=== PATIENT | female | born 1985 | race Caucasian/White ===

== ENCOUNTER 2020-12-28 23:25 | Emergency (ER) | payer SELFPAY ==
[2020-12-29] MEDS ORDERED: HYDROCODONE/APAP 10/325 TAB ONE (00:44)
--- NOTE | 2020-12-29 01:34 | ER ---
Nurse's Notes [facility] Name: Luz Augustin Age: 35 yrs Sex: Female : 1985 Arrival Date: 12/28/2020 Time: 23:28 Bed 7 Private MD: Diagnosis: Nondisplaced fracture of fifth metatarsal bone, left foot-Avulsion Presentation: 12/29 00:13 Chief complaint: Patient states: fell down 5-6 steps, coming down the stairs, felt a iw pop in her left ankle ankle/foot and left knee, now has pain and swelling to left foot, denies hitting head or any other injuries. Coronavirus screen: At this time, the client does not indicate any symptoms associated with coronavirus-19. Ebola Screen: Patient negative for fever greater than or equal to 101.5 degrees Fahrenheit, and additional compatible Ebola Virus Disease symptoms Patient denies exposure to infectious person. Patient denies travel to an Ebola-affected area in the 21 days before illness onset. No symptoms or risks identified at this time. Initial Sepsis Screen: Does the patient meet any 2 criteria? No. Patient's initial sepsis screen is negative. Does the patient have a suspected source of infection? No. Patient's initial sepsis screen is negative. Risk Assessment: Do you want to hurt yourself or someone else? Patient reports no desire to harm self or others. Onset of symptoms was December 29, 2020. 00:13 Method Of Arrival: Wheelchair iw 00:13 Acuity: NOEMI 4 iw Triage Assessment: 01:51 General: Appears uncomfortable, Behavior is calm, cooperative. Pain: Complains of pain rv in left foot. Historical: - Allergies: 00:15 No Known Allergies; iw - Home Meds: 00:15 None [Active]; iw - PMHx: 00:15 None; iw - PSHx: 00:15 Cholecystectomy; iw - Immunization history:: Adult Immunizations up to date. - Social history:: Smoking status: Patient denies any tobacco usage or history of. - Family history:: not pertinent. - Hospitalizations: : No recent hospitalization is reported. Screenin:19 Abuse screen: Denies threats or abuse. Nutritional screening: No deficits noted. ea Tuberculosis screening: No symptoms or risk factors identified. Fall Risk Fall in past 12 months (25 points). Vital Signs: 00:13 BP 138 / 94; Pulse 89; Resp 16; Pulse Ox 97% on R/A; iw 01:51 BP 131 / 86; Pulse 81; Resp 16; Pulse Ox 98% on R/A; rv ED Course: 12/28 23:28 Patient arrived in ED. am4 12/29 00:04 Anil Maciel MD is Attending Physician. rn 00:14 Triage completed. iw 00:15 Arm band placed on. iw 00:19 Nataliya Martinez RN is Primary Nurse. ea 00:19 Patient has correct armband on for positive identification. Bed in low position. Call ea light in reach. Side rails up X2. 00:59 Foot Left 3 View In Process Unspecified. EDMS 01:03 Ankle Left 3 View In Process Unspecified. EDMS 01:51 No provider procedures requiring assistance completed. Patient did not have IV access rv during this emergency room visit. Administered Medications: 00:28 Drug: Beatrice (HYDROcodone-acetaminophen) 10 mg-325 mg 1 tabs Route: PO; ea 01:34 Follow up: Response: No adverse reaction; RASS: Alert and Calm (0) ea Outcome: 01:33 Discharge ordered by . rn 01:51 Discharged to home via wheelchair. rv 01:51 Condition: good 01:51 Discharge instructions given to patient, Instructed on discharge instructions, follow up and referral plans. Demonstrated understanding of instructions, follow-up care. 01:52 Patient left the ED. rv Signatures: Dispatcher [employer] Shaylee Way RN RN iw Nieto, Roman, MD MD rn Antunez, Elena, RN Kevin Cobb ea, RN RN rv Martinez, Ashley am4
--- NOTE | 2020-12-29 01:34 | EDPHYS ---
Physician Documentation [facility] Name: Luz Augustin Age: 35 yrs Sex: Female : 1985 Arrival Date: 12/28/2020 Time: 23:28 Bed 7 Private MD: ED Physician Anil Maciel HPI: 12/29 00:48 This 35 yrs old Female presents to ER via Wheelchair with complaints of foot injury. rn 00:49 The patient presents with an injury, pain. The complaints affect the left foot. rn 00:49 Onset: The symptoms/episode began/occurred just prior to arrival. Modifying factors: rn The symptoms are alleviated by elevation of extremity, the symptoms are aggravated by weight bearing, movement. Associated signs and symptoms: Pertinent positives: swelling, Pertinent negatives: fever, weakness. Severity of symptoms: At their worst the symptoms were moderate, in the emergency department the symptoms are unchanged. The patient has not experienced similar symptoms in the past. The patient has not recently seen a physician. Reports missed a step, fell, landed on left foot and ankle, reports pain and swelling to left lateral foot and 5th toe. No other injuries to head/back/neck/chest. . Historical: - Allergies: 00:15 No Known Allergies; iw - Home Meds: 00:15 None [Active]; iw - PMHx: 00:15 None; iw - PSHx: 00:15 Cholecystectomy; iw - Immunization history:: Adult Immunizations up to date. - Social history:: Smoking status: Patient denies any tobacco usage or history of. - Family history:: not pertinent. - Hospitalizations: : No recent hospitalization is reported. ROS: 00:49 Constitutional: Negative for fever, chills, and weight loss, MS/Extremity: + injury and rn pain to left foot Skin: Negative for injury, rash, and discoloration, Neuro: Negative for weakness, numbness, tingling Exam: 00:51 Constitutional: This is a well developed, well nourished patient who is awake, alert, rn and in no acute distress. MS/ Extremity: Pulses equal, no cyanosis. Neurovascular intact. + mild swelling and tenderness left lateral foot and 5th toe. No open wounds. Vital Signs: 00:13 BP 138 / 94; Pulse 89; Resp 16; Pulse Ox 97% on R/A; iw 01:51 BP 131 / 86; Pulse 81; Resp 16; Pulse Ox 98% on R/A; rv MDM: 00:04 Patient medically screened. rn 01:31 Differential diagnosis: fracture, sprain. Data reviewed: vital signs, nurses notes, rn radiologic studies, plain films, and as a result, I will discharge patient. Counseling: I had a detailed discussion with the patient and/or guardian regarding: the historical points, exam findings, and any diagnostic results supporting the discharge/admit diagnosis, radiology results, the need for outpatient follow up, to return to the emergency department if symptoms worsen or persist or if there are any questions or concerns that arise at home. Response to treatment: the patient's symptoms have mildly improved after treatment, and as a result, I will discharge patient. ED course: small avulsion fracture left 5th metatarsal. Will dc home in hard sole shoe and RICE.. 12/29 00:31 Order name: Foot Left 3 View [facility] 12/29 00:31 Order name: Ankle Left 3 View [facility] 12/29 01:34 Order name: Splint: post-op shoe; Complete Time: 01:50 rn Administered Medications: 00:28 Drug: Luquillo (HYDROcodone-acetaminophen) 10 mg-325 mg 1 tabs Route: PO; ea 01:34 Follow up: Response: No adverse reaction; RASS: Alert and Calm (0) ea Disposition: 12/29/20 01:33 Discharged to Home. Impression: Nondisplaced fracture of fifth metatarsal bone, left foot - Avulsion. - Condition is Stable. - Discharge Instructions: Avulsion Fracture of the Foot. - Medication Reconciliation Form, Thank You Letter, Antibiotic Education, Prescription Opioid Use form. - Follow up: Private Physician; When: As needed; Reason: Recheck today's complaints, Re-evaluation by your physician. - Problem is new. - Symptoms have improved. Signatures: Dispatcher [employer] [facility] Shaylee Peña RN RN iw Nieto, Roman, MD MD rn Antunez, Elena, RN RN ea Vicente, Ronaldo, RN RN rv Corrections: (The following items were deleted from the chart) 01:52 01:33 12/29/2020 01:33 Discharged to Home. Impression: Nondisplaced fracture of fifth rv metatarsal bone, left foot - Avulsion. Condition is Stable. Forms are Medication Reconciliation Form, Thank You Letter, Antibiotic Education, Prescription Opioid Use. Follow up: Private Physician; When: As needed; Reason: Recheck today's complaints, Re-evaluation by your physician. Problem is new. Symptoms have improved. rn
[2020-12-29 01:58] VITALS: BP 131/86; O2SAT 98
--- NOTE | 2020-12-29 10:58 | RAD REPORT ---
EXAM DESCRIPTION: RAD - Ankle Left 3 View -12/29/2020 1:03 am CLINICAL HISTORY: 35 years, Female, PAIN COMPARISON: None FINDINGS: 3 X-ray views of the left foot and left ankle (frontal lateral and oblique) were performed . There is small chip avulsion fracture along the base fifth metatarsal with no evidence for significan t displacement. There is no significant articular or soft tissue abnormalities. No gross intraosseo us lesions. No periosteal reaction is seen. The ankle mortise is intact. There is no significant yaneli int effusion. No periosteal reaction. No gross soft tissue abnormality is demonstrated. IMPRESSION: Small chip avulsion fracture base fifth metatarsal. Otherwise unremarkable left ankle an d left foot. Electronically signed by: Henri Spencer MD 12/29/2020 1:16 AM CDT Due to temporary technical issues with the PACS/Fluency reporting system, reports are being signed by the in house radiologist without review as a courtesy to ensure prompt reporting. The interpreting r adiologist is fully responsible for the content of the report.
--- NOTE | 2020-12-29 11:03 | RAD REPORT ---
EXAM DESCRIPTION: RAD - Foot Left 3 View - 12/29/2020 12:59 am CLINICAL HISTORY: 35 years, Female, PAIN COMPARISON: None . FINDINGS: 3 X-ray views of the left foot and left ankle (frontal lateral and oblique) were performed . There is small chip avulsion fracture along the base fifth metatarsal with no evidence for significan t displacement. There is no significant articular or soft tissue abnormalities. No gross intraosseo us lesions. No periosteal reaction is seen. The ankle mortise is intact. There is no significant yaneli int effusion. No periosteal reaction. No gross soft tissue abnormality is demonstrated. IMPRESSION: Small chip avulsion fracture base fifth metatarsal. Otherwise unremarkable left ankle an d left foot. Electronically signed by: Henri Spencer MD 12/29/2020 1:16 AM CDT Due to temporary technical issues with the PACS/Fluency reporting system, reports are being signed by the in house radiologist without review as a courtesy to ensure prompt reporting. The interpreting r adiologist is fully responsible for the content of the report.
== END 2020-12-29 01:52 | disposition home or self-care (01) ==
LOC: ER 23:25
DX: S92.355A Nondisplaced fracture of fifth metatarsal bone, left foot, initial encounter for closed fracture (principal); W19.XXXA Unspecified fall, initial encounter
CPT/HCPCS: 99283

== ENCOUNTER 2021-05-09 10:21 | Emergency (ER) | payer SELFPAY ==
--- NOTE | 2021-05-09 11:45 | ER ---
Nurse's Notes [facility] Name: Luz Augustin Age: 36 yrs Sex: Female : 1985 Arrival Date: 05/09/2021 Time: 10:31 Bed DX1 Private MD: Diagnosis: Streptococcal tonsillitis Presentation: 05/09 10:36 Chief complaint: Patient states: Sunday awoke with sore throat, spitting up blood. ll1 States she gets strep throat yearly. No N/V/D, no fever. Coronavirus screen: Vaccine status: Patient reports being unvaccinated. Client denies travel out of the [place] in the last 14 days. sore throat, Client presents with at least one sign or symptom that may indicate coronavirus-19. Standard/surgical mask placed on the client. Ebola Screen: Patient denies travel to an Ebola-affected area in the 21 days before illness onset. Initial Sepsis Screen: Does the patient meet any 2 criteria? No. Patient's initial sepsis screen is negative. Does the patient have a suspected source of infection? Yes: Other: sore throat. Risk Assessment: Do you want to hurt yourself or someone else? Patient reports no desire to harm self or others. Onset of symptoms was May 08, 2021. 10:36 Method Of Arrival: Ambulatory ll1 10:36 Acuity: NOEMI 4 ll1 Historical: - Allergies: 10:38 No Known Allergies; ll1 - PMHx: 10:38 None; ll1 - PSHx: 10:38 hysterectomy; Cholecystectomy; ll1 - Immunization history:: Client reports having NOT received the Covid vaccine. Flu vaccine status is unknown. - Social history:: Smoking status: Patient denies any tobacco usage or history of. Screenin:53 Abuse screen: Denies threats or abuse. Denies injuries from another. Nutritional ss screening: No deficits noted. Tuberculosis screening: Never had TB. Fall Risk None identified. Assessment: 11:53 General: Appears in no apparent distress. comfortable, Behavior is calm, cooperative, ss Reports feeling ill for 1-2 days. Pain: Complains of pain in throat Pain currently is 10 out of 10 on a pain scale. Quality of pain is described as sore. Neuro: Level of Consciousness is awake, alert, obeys commands, Oriented to person, place, time, situation, Patient Coordinator are equal bilaterally. Cardiovascular: Capillary refill < 3 seconds is brisk in bilateral fingers. Respiratory: Airway is patent Respiratory effort is even, unlabored, Respiratory pattern is regular, symmetrical, Breath sounds are clear bilaterally. GI: No signs and/or symptoms were reported involving the gastrointestinal system. EENT: Oral mucosa is moist. Throat is clear. Derm: Skin is intact, is healthy with good turgor, Skin is dry, Skin is pink, warm \T\ dry. normal. Vital Signs: 10:36 Resp 18; Weight 92.99 kg; Height 5 ft. 2 in. (157.48 cm); Pain 10/10; ll1 10:39 BP 114 / 80; Pulse 75; Temp 97.6; Pulse Ox 100% ; ll1 10:36 Body Mass Index 37.49 (92.99 kg, 157.48 cm) ll1 ED Course: 10:31 Patient arrived in ED. as 10:36 Arm band placed on. ll1 10:38 Triage completed. ll1 10:47 Farhana Pena FNP-C is [facility]. kb 10:47 Sherman Tucker MD is Attending Physician. kb 11:53 Miroslava Ortega, PERI is Primary Nurse. ss 11:53 Patient has correct armband on for positive identification. Bed in low position. Call ss light in reach. 11:53 No provider procedures requiring assistance completed. Patient did not have IV access ss during this emergency room visit. Administered Medications: 11:53 Drug: Bicillin L-A (penicillin G Benzathine) 1.2 million units Route: IM; Site: right ss gluteus; 12:06 Follow up: Response: No adverse reaction; Medication administered at discharge. ss Outcome: 11:44 Discharge ordered by . kb 12:05 Discharged to home ambulatory. ss 12:05 Condition: good 12:05 Discharge instructions given to patient, Instructed on discharge instructions, follow up and referral plans. Demonstrated understanding of instructions, follow-up care. 12:06 Patient left the ED. ss Signatures: Farhana Pena FNP-C FNP-Colleen Guzman Shelby, RN RN Peirre Morales RN RN 1
--- NOTE | 2021-05-09 11:45 | EDPHYS ---
Physician Documentation [facility] Name: Luz Augustin Age: 36 yrs Sex: Female : 1985 Arrival Date: 05/09/2021 Time: 10:31 Bed DX1 Private MD: LANETTE Physician Sherman Tucker HPI: 05/09 11:45 This 36 yrs old Female presents to ER via Ambulatory with complaints of Sore kb Throat. 11:45 The patient presents with sore throat. The patient describes throat pain as constant. kb Onset: The symptoms/episode began/occurred yesterday. Severity of symptoms: At their worst the symptoms were moderate, in the emergency department the symptoms are unchanged. Modifying factors: The symptoms are alleviated by nothing, the symptoms are aggravated by swallowing, Patient's oral intake status: good Denies contact with similarly ill indivduals. Associated signs and symptoms: Pertinent positives: Sore throat Pertinent negatives fever. The patient has not experienced similar symptoms in the past. The patient has not recently seen a physician. Pt reports sore throat since yesterday morning. Denies any other symptoms. Historical: - Allergies: 10:38 No Known Allergies; ll1 - PMHx: 10:38 None; ll1 - PSHx: 10:38 hysterectomy; Cholecystectomy; ll1 - Immunization history:: Client reports having NOT received the Covid vaccine. Flu vaccine status is unknown. - Social history:: Smoking status: Patient denies any tobacco usage or history of. ROS: 11:45 Constitutional: Negative for fever, chills, and weight loss. kb 11:45 ENT: Positive for sore throat. 11:45 All other systems are negative. Exam: 11:45 Constitutional: This is a well developed, well nourished patient who is awake, alert, kb and in no acute distress. Head/Face: Normocephalic, atraumatic. Respiratory: Respirations even and unlabored. No increased work of breathing, no retractions or nasal flaring. Skin: Warm, dry with normal turgor. Normal color. MS/ Extremity: Pulses equal, no cyanosis. Neurovascular intact. Full, normal range of motion. Neuro: Awake and alert, GCS 15, oriented to person, place, time, and situation. Moves all extremities. Normal gait. Psych: Awake, alert, with orientation to person, place and time. Behavior, mood, and affect are within normal limits. 11:45 ENT: Posterior pharynx: Airway: normal, Tonsils: bilaterally enlarged, with erythema, Uvula: normal, midline, swelling, that is mild, erythema, that is moderate, exudate, is not appreciated. Vital Signs: 10:36 Resp 18; Weight 92.99 kg; Height 5 ft. 2 in. (157.48 cm); Pain 10/10; ll1 10:39 BP 114 / 80; Pulse 75; Temp 97.6; Pulse Ox 100% ; ll1 10:36 Body Mass Index 37.49 (92.99 kg, 157.48 cm) ll1 MDM: 11:43 Patient medically screened. kb 11:46 Data reviewed: vital signs, nurses notes. Data interpreted: Pulse oximetry: on room air kb is 100 %. Interpretation: normal. Counseling: I had a detailed discussion with the patient and/or guardian regarding: the historical points, exam findings, and any diagnostic results supporting the discharge/admit diagnosis, lab results, the need for outpatient follow up, a family practitioner, to return to the emergency department if symptoms worsen or persist or if there are any questions or concerns that arise at home. 05/09 10:41 Order name: Strep; Complete Time: 11:11 ll1 Administered Medications: 11:53 Drug: Bicillin L-A (penicillin G Benzathine) 1.2 million units Route: IM; Site: right ss gluteus; 12:06 Follow up: Response: No adverse reaction; Medication administered at discharge. ss Disposition: 15:13 Co-signature as Attending Physician, Sherman Tucker MD I agree with the assessment and rehana plan of care. Disposition Summary: 05/09/21 11:44 Discharge Ordered Location: Home kb Condition: Stable kb Diagnosis - Streptococcal tonsillitis kb Followup: kb - With: Emergency Department - When: As needed - Reason: Worsening of condition Followup: kb - With: Private Physician - When: 2 - 3 days - Reason: Recheck today's complaints, Continuance of care, Re-evaluation by your physician Discharge Instructions: - Discharge Summary Sheet kb - Strep Throat, Adult, [id number] kb Forms: - Medication Reconciliation Form kb - Thank You Letter kb - Antibiotic Education kb - Prescription Opioid Use kb Signatures: Dispatcher [employer] Farhana Rosario, KEY WORKER-C KEY WORKER-Edb Sherman Tucker MD MD cha Smirch, Shelby, RN RN ss Pierre Morales RN RN ll1
[2021-05-09 12:12] VITALS: BP 114/80; TEMP 97.6; O2SAT 100
[2021-05-09] MEDS ORDERED: PEN G BENZ LA 1.2MU/2ML SYRINGE IM ONE (12:12)
== END 2021-05-09 12:06 | disposition home or self-care (01) ==
LOC: ER 10:21
DX: J03.00 Acute streptococcal tonsillitis, unspecified (principal)
CPT/HCPCS: 87081; 96372; 99283; J0561

== ENCOUNTER 2021-11-23 19:23 | Emergency (ER) | payer SELFPAY ==
--- NOTE | 2021-11-23 20:14 | ER ---
Nurse's Notes [facility] Name: Luz Augustin Age: 36 yrs Sex: Female : 1985 Arrival Date: 11/23/2021 Time: 19:26 Bed 9 Private MD: Diagnosis: Hordeolum externum left upper eyelid Presentation: 11/23 19:32 Chief complaint: Patient states: "I thought I had a stye so I've been doing warm ab2 compresses and i went and got drops but they made my face swell up. This has been going on for 2 weeks.". Coronavirus screen: Vaccine status: Patient reports being unvaccinated. Client denies travel out of the [place] in the last 14 days. At this time, the client does not indicate any symptoms associated with coronavirus-19. Ebola Screen: Patient negative for fever greater than or equal to 101.5 degrees Fahrenheit, and additional compatible Ebola Virus Disease symptoms Patient denies exposure to infectious person. Patient denies travel to an Ebola-affected area in the 21 days before illness onset. No symptoms or risks identified at this time. Initial Sepsis Screen: Does the patient meet any 2 criteria? No. Patient's initial sepsis screen is negative. Does the patient have a suspected source of infection? No. Patient's initial sepsis screen is negative. Risk Assessment: Do you want to hurt yourself or someone else? Patient reports no desire to harm self or others. Onset of symptoms is unknown. 19:32 Method Of Arrival: Ambulatory ab2 19:32 Acuity: NOEMI 4 ab2 Triage Assessment: 19:34 General: Appears in no apparent distress. uncomfortable, Behavior is calm, cooperative, ab2 appropriate for age. Pain: Complains of pain in right eye Pain currently is 8 out of 10 on a pain scale. Historical: - Allergies: 19:34 No Known Allergies; ab2 - PMHx: 19:34 None; ab2 - PSHx: 19:34 Cholecystectomy; hysterectomy; ab2 - Immunization history:: Adult Immunizations up to date. - Social history:: Smoking status: Patient denies any tobacco usage or history of. Screenin:29 Abuse screen: Denies threats or abuse. Nutritional screening: No deficits noted. ss7 Tuberculosis screening: No symptoms or risk factors identified. Fall Risk None identified. Assessment: 20:29 General: Appears in no apparent distress. Behavior is calm, cooperative, appropriate ss7 for age. Pain: Pain radiates to left upper eyelid. Neuro: No deficits noted. Cardiovascular: No deficits noted. Respiratory: No deficits noted. GI: No deficits noted. : No deficits noted. EENT: Lid(s) w/ stye noted left upper eyelid. Vital Signs: 19:32 BP 146 / 92; Pulse 77; Resp 17; Temp 98.2(TE); Pulse Ox 100% ; Weight 92.99 kg; Height ab2 5 ft. 2 in. (157.48 cm); Pain 8/10; 19:32 Body Mass Index 37.49 (92.99 kg, 157.48 cm) ab2 ED Course: 19:26 Patient arrived in ED. es 19:34 Triage completed. ab2 19:34 Arm band placed on right wrist. ab2 19:36 Theo Montalvo PA is PHCP. jr8 19:36 Sherman Tucker MD is Attending Physician. jr8 20:13 Carol Rois MD is Referral Physician. jr8 20:29 Dahlia Tejeda, PERI is Primary Nurse. ss7 20:29 Patient has correct armband on for positive identification. ss7 20:29 No provider procedures requiring assistance completed. Patient did not have IV access ss7 during this emergency room visit. Administered Medications: No medications were administered Outcome: 20:13 Discharge ordered by . jr8 20:29 Discharged to home ambulatory. ss7 20:29 Condition: good 20:29 Discharge instructions given to patient, Instructed on discharge instructions, follow up and referral plans. Demonstrated understanding of instructions, follow-up care, medications, Prescriptions given X 1. 20:30 Patient left the ED. ss7 Signatures: Jen Calvert Theo Montalvo PA PA jr8 Lex Ibarra ab2 Dahlia Tejeda, RN RN ss7
--- NOTE | 2021-11-23 20:14 | EDPHYS ---
Physician Documentation [facility] Name: Luz Augustin Age: 36 yrs Sex: Female : 1985 Arrival Date: 11/23/2021 Time: 19:26 Bed 9 Private MD: ED Physician Sherman Tucker HPI: 11/23 20:09 This 36 yrs old Female presents to ER via Ambulatory with complaints of Eye Problem. jr8 20:09 The patient is experiencing pain, redness. Onset: The symptoms/episode began/occurred jr8 gradually. Duration: the symptoms are continuous. Aggravated by pressure, rubbing. Associated signs and symptoms: Pertinent positives: None. Patient does not utilize any form of vision correction. Severity of symptoms: At their worst the symptoms were mild in the emergency department the symptoms are unchanged. The patient has not experienced similar symptoms in the past. The patient has not recently seen a physician. This is a 36-year-old female that presented to the emergency room with ongoing complaints of a left thigh stye. Patient stated that she has been doing warm compresses but is not being relieved. Has had it for little over a week now. Denies any other symptoms at this time.. Historical: - Allergies: 19:34 No Known Allergies; ab2 - PMHx: 19:34 None; ab2 - PSHx: 19:34 Cholecystectomy; hysterectomy; ab2 - Immunization history:: Adult Immunizations up to date. - Social history:: Smoking status: Patient denies any tobacco usage or history of. ROS: 20:09 ENT: Negative for injury, pain, and discharge, Neck: Negative for injury, pain, and jr8 swelling, Cardiovascular: Negative for chest pain, palpitations, and edema, Respiratory: Negative for shortness of breath, cough, wheezing, and pleuritic chest pain, Abdomen/GI: Negative for abdominal pain, nausea, vomiting, diarrhea, and constipation, Back: Negative for injury and pain, MS/Extremity: Negative for injury and deformity, Skin: Negative for injury, rash, and discoloration, Neuro: Negative for headache, weakness, numbness, tingling, and seizure. 20:09 Eyes: Positive for pain, redness, swelling, of the left upper eyelid. Exam: 20:09 Visual Acuity: Visual acuity is within normal limits. jr8 20:09 Constitutional: This is a well developed, well nourished patient who is awake, alert, and in no acute distress. Head/Face: Normocephalic, atraumatic. ENT: Nares patent. No nasal discharge, no septal abnormalities noted. Tympanic membranes are normal and external auditory canals are clear. Oropharynx with no redness, swelling, or masses, exudates, or evidence of obstruction, uvula midline. Mucous membranes moist. Cardiovascular: Regular rate and rhythm with a normal S1 and S2. No gallops, murmurs, or rubs. Normal PMI, no JVD. No pulse deficits. Respiratory: Lungs have equal breath sounds bilaterally, clear to auscultation and percussion. No rales, rhonchi or wheezes noted. No increased work of breathing, no retractions or nasal flaring. Skin: Warm, dry with normal turgor. Normal color with no rashes, no lesions, and no evidence of cellulitis. MS/ Extremity: Pulses equal, no cyanosis. Neurovascular intact. Full, normal range of motion. Neuro: Awake and alert, GCS 15, oriented to person, place, time, and situation. Cranial nerves II-XII grossly intact. Motor strength 5/5 in all extremities. Sensory grossly intact. Cerebellar exam normal. Normal gait. 20:09 Eyes: Periorbital structures: appear normal, Pupils: equal, round, and reactive to light and accomodation, Extraocular movements: intact throughout, Conjunctiva: normal, Corneas: are normal, Sclera: no appreciated abnormality, Anterior chamber: normal, Lids and lashes: stye, on the left lid. Vital Signs: 19:32 BP 146 / 92; Pulse 77; Resp 17; Temp 98.2(TE); Pulse Ox 100% ; Weight 92.99 kg; Height ab2 5 ft. 2 in. (157.48 cm); Pain 8/10; 19:32 Body Mass Index 37.49 (92.99 kg, 157.48 cm) ab2 MDM: 19:42 Patient medically screened. [facility] 20:09 Data reviewed: vital signs, nurses notes, and as a result, I will discharge patient. jr8 Data interpreted: Pulse oximetry: on room air is 100 %. Interpretation: normal. Counseling: I had a detailed discussion with the patient and/or guardian regarding: the historical points, exam findings, and any diagnostic results supporting the discharge/admit diagnosis, the need for outpatient follow up, an opthalmologist, to return to the emergency department if symptoms worsen or persist or if there are any questions or concerns that arise at home. Administered Medications: No medications were administered Disposition Summary: 11/23/21 20:13 Discharge Ordered Location: Home jr8 Problem: new jr8 Symptoms: have improved jr8 Condition: Stable jr8 Diagnosis - Hordeolum externum left upper eyelid jr8 Followup: jr8 - With: Carol Rios MD - When: 2 - 3 days - Reason: Recheck today's complaints, Continuance of care, Re-evaluation by your physician Discharge Instructions: - Discharge Summary Sheet jr8 - [place] [id number] Forms: - Medication Reconciliation Form jr8 - Thank You Letter jr8 - Antibiotic Education jr8 - Prescription Opioid Use jr8 Prescriptions: - Bacitracin 500 unit/gram Ophthalmic Ointment - instill 0.5 inch by OPHTHALMIC route every 6 hours for 7 days; 3.5 tube; jr8 Refills: 0, Product Selection Permitted Addendum: 11/25/2021 05:29 Co-signature as Attending Physician, Sherman Tucker MD I agree with the assessment and c champagne plan of care. Signatures: Sherman Tucker MD MD cha Roszak, Josh, PA PA jr8 Lex Ibarra ab2
[2021-11-23 20:34] VITALS: BP 146/92; TEMP 98.2; O2SAT 100
== END 2021-11-23 20:30 | disposition home or self-care (01) ==
LOC: ER 19:23
DX: H00.014 Hordeolum externum left upper eyelid (principal)
CPT/HCPCS: 99282

== ENCOUNTER 2022-04-02 20:59 | Emergency (ER) | payer SELFPAY ==
[2022-04-02 21:25] LABS: Urine Blood Trace-intact (Negative); Urine Glucose Negative (Negative); Urine Protein Negative (Negative); Urine Specific Gravity >=1.030 (1.005-1.030)
[2022-04-02 21:32] LABS: Absolute Lymphocytes (CBC) 2.5 K/uL (0.7-4.9); Hematocrit 41.1 % (36.0-45.0); Lymphocytes % 41.1 % (15.3-44.8); MCV 91.2 fL (80-100); MPV 8.9 fL (7.6-11.3)
[2022-04-02] MEDS ORDERED: KETOROLAC 30 MG/ML INJ ONE (21:33)
[2022-04-02] MEDS ORDERED: ONDANSETRON 4 MG/2 ML VIAL ONE (21:33)
[2022-04-02] MEDS ORDERED: NA CHLORIDE 0.9% 1,000 ML ONE (21:33)
[2022-04-02 21:49] LABS: Albumin 3.7 g/dL (3.4-5.0); Bilirubin Total 0.3 mg/dL (0.2-1.0); Potassium 3.6 mmol/L (3.5-5.1); Protein, Total 7.4 g/dL (6.4-8.2)
--- NOTE | 2022-04-02 21:56 | RAD REPORT ---
EXAM DESCRIPTION: CTAbdomen Pelvis W Contrast - 04/02/2022 9:44 pm CLINICAL HISTORY: abd pain COMPARISON: <Comparisons> TECHNIQUE: CT of the abdomen and pelvis was performed with contrast. All CT scans are performed using dose optimization technique as appropriate and may include automated exposure control or mA/KV adjustment according to patient size. FINDINGS: Lower chest: No acute abnormality. Liver: No acute abnormality or suspicious lesions. Biliary: Cholecystectomy Stomach: No significant focal abnormality. Duodenum: No significant focal abnormality. Pancreas: No significant abnormality. Spleen: No significant abnormality. Adrenal: No suspicious lesions. Kidney/ureter: No hydronephrosis. No renal calculi. Too small to characterize and/or benign appearing renal lesions are noted. Retroperitoneum: No retroperitoneal adenopathy. Vascular: No aneurysm. Bowel: The appendix is within normal limits.. No bowel obstruction. Peritoneum: No ascites or free air. Bladder: Grossly unremarkable. Reproductive: No adnexal masses. Hysterectomy. Bones: No acute fracture. Other: n/a IMPRESSION: No acute intra-abdominal or pelvic finding. No evidence of appendicitis.
[2022-04-02] MEDS ORDERED: MORPHINE 4 MG/ML SYR ONE (22:30)
--- NOTE | 2022-04-02 23:05 | ER ---
Nurse's Notes [facility] Name: Luz Augustin Age: 36 yrs Sex: Female : 1985 Arrival Date: 04/02/2022 Time: 21:02 Bed 6 Private MD: Diagnosis: Abdominal pain, Generalized Presentation: 04/02 21:12 Chief complaint: Patient states: RLQ abdominal pain since this morning with N/V/D, lp1 chills. Coronavirus screen: At this time, the client does not indicate any symptoms associated with coronavirus-19. Ebola Screen: No symptoms or risks identified at this time. Initial Sepsis Screen: Does the patient meet any 2 criteria? No. Patient's initial sepsis screen is negative. Does the patient have a suspected source of infection? No. Patient's initial sepsis screen is negative. Risk Assessment: Do you want to hurt yourself or someone else? Patient reports no desire to harm self or others. Onset of symptoms was April 02, 2022. 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 - Social history:: Smoking status: Patient denies any tobacco usage or history of. Screenin:14 Abuse screen: Denies threats or abuse. Denies injuries from another. Nutritional lp1 screening: No deficits noted. Tuberculosis screening: No symptoms or risk factors identified. Fall Risk None identified. Assessment: 21:34 General: Appears uncomfortable, Behavior is calm, cooperative, appropriate for age. lp1 Pain: Complains of pain in umbilical area and right lower quadrant Pain currently is 10 out of 10 on a pain scale. Quality of pain is described as burning. Neuro: Level of Consciousness is awake, alert, obeys commands, Oriented to person, place, time, situation. Cardiovascular: Patient's skin is warm and dry. Respiratory: Respiratory effort is even, unlabored. GI: Abdomen is non-distended, Bowel sounds present X 4 quads. Abdomen is tender to palpation in right lower quadrant Reports diarrhea, nausea, vomiting. : Denies burning with urination, urinary frequency. EENT: No signs and/or symptoms were reported regarding the EENT system. Derm: Skin is pink, warm \T\ dry. Musculoskeletal: No deficits noted. 22:20 Reassessment: Provider notified of patient in continued pain to RLQ of abdomen. lp1 23:22 Reassessment: Patient reports some continued abdominal pain to RLQ, demonstrates lp1 understanding of discharge instructions. Vital Signs: 21:12 BP 122 / 96; Pulse 88; Resp 18; Temp 98.3(O); Pulse Ox 96% on R/A; Weight 95.71 kg (R); lp1 Height 5 ft. 3 in. (160.02 cm); Pain 10/10; 22:31 BP 138 / 79; Pulse 88; Resp 18; Pulse Ox 99% on R/A; lp1 23:10 BP 128 / 76; Pulse 87; Resp 18; Pulse Ox 99% on R/A; lp1 21:12 Body Mass Index 37.38 (95.71 kg, 160.02 cm) lp1 ED Course: 21:02 Patient arrived in ED. ja2 21:03 Farh[facility] Pena FNP-C [facility] kb 21:03 Elton Shannon MD is Attending Physician. kb 21:06 Szui Crandall, PERI is Primary Nurse. lp1 21:13 Triage completed. lp1 21:13 Arm band placed on. lp1 21:14 Patient has correct armband on for positive identification. lp1 21:46 CT Abd/Pelvis - IV Contrast Only In Process Unspecified. EDMS 23:10 No provider procedures requiring assistance completed. lp1 23:22 IV discontinued, No redness/swelling at site. Pressure dressing applied. lp1 Administered Medications: 21:30 Drug: NS 0.9% 1000 ml Route: IV; Rate: 1 bolus; Site: right antecubital; lp1 23:21 Follow up: IV Status: Completed infusion; IV Intake: 1000ml lp1 21:30 Drug: Zofran (Ondansetron) 4 mg Route: IVP; Site: right antecubital; lp1 22:26 Follow up: Response: Nausea is decreased lp1 21:33 Drug: Ketorolac 15 mg Route: IVP; Site: right antecubital; lp1 22:26 Follow up: Response: Pain is unchanged, physician notified lp1 22:26 Drug: morphine 4 mg Route: IVP; Infused Over: 4 mins; Site: right antecubital; lp1 23:21 Follow up: Response: Pain is decreased lp1 23:21 Drug: [place] (HYDROcodone-acetaminophen) (7.5 mg-325 mg) 1 tabs Route: PO; lp1 23:22 Follow up: Response: Medication administered at discharge. lp1 Medication: 21:14 VIS not applicable for this client. lp1 Intake: 23:21 IV: 1000ml; Total: 1000ml. lp1 Outcome: 23:05 Discharge ordered by . bal 23:22 Discharged to home ambulatory, with friend. lp1 23:22 Condition: good 23:22 Discharge instructions given to patient, Instructed on discharge instructions, follow up and referral plans. medication usage, Demonstrated understanding of instructions, follow-up care, medications, Prescriptions given X 2. 23:23 Patient left the ED. lp1 Signatures: Dispatcher [employer] EDFarhana Lange, SWEEPER BRUSH MAKER MACHINE-C SWEEPER BRUSH MAKER MACHINE-Suzi Orta, RN RN lp1 Luz Jesus
--- NOTE | 2022-04-02 23:05 | EDPHYS ---
Physician Documentation [facility] Name: Luz Augustin Age: 36 yrs Sex: Female : 1985 Arrival Date: 04/02/2022 Time: 21:02 Bed 6 Private MD: ED Physician Elton Shannon HPI: 04/02 21:09 This 36 yrs old Female presents to ER via Unassigned with complaints of Abdominal Pain, kb Flank Pain. 21:09 The patient presents with abdominal pain right lower quadrant. Onset: The kb symptoms/episode began/occurred this morning. The symptoms do not radiate. Associated signs and symptoms: Pertinent positives: nausea and vomiting, diarrhea. The symptoms are described as constant. Modifying factors: The symptoms are alleviated by nothing, the symptoms are aggravated by nothing. Severity of pain: At its worst the pain was moderate in the emergency department the pain is unchanged. The patient has not experienced similar symptoms in the past. The patient has not recently seen a physician. Patient reports right lower quadrant pain that started this morning with diarrhea and vomiting. Reports chills but has not checked her temperature.. 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 - Social history:: Smoking status: Patient denies any tobacco usage or history of. ROS: 21:09 Respiratory: Negative for shortness of breath, cough, wheezing, and pleuritic chest kb pain. 21:09 Constitutional: Positive for chills. 21:09 Abdomen/GI: Positive for abdominal pain, nausea, vomiting, and diarrhea. 21:09 All other systems are negative. Exam: 21:09 Constitutional: This is a well developed, well nourished patient who is awake, alert, kb and in no acute distress. Head/Face: Normocephalic, atraumatic. ENT: Moist Mucous membranes Cardiovascular: Regular rate and rhythm with a normal S1 and S2. No gallops, murmurs, or rubs. No pulse deficits. Respiratory: Respirations even and unlabored. No increased work of breathing. Talking in full sentences Skin: Warm, dry with normal turgor. Normal color. MS/ Extremity: Pulses equal, no cyanosis. Neurovascular intact. Full, normal range of motion. Neuro: Awake and alert, GCS 15, oriented to person, place, time, and situation. Moves all extremities. Normal gait. Psych: Awake, alert, with orientation to person, place and time. Behavior, mood, and affect are within normal limits. 21:09 Abdomen/GI: Inspection: abdomen appears normal, Bowel sounds: normal, Palpation: soft, in all quadrants, moderate abdominal tenderness, in the right upper quadrant and right lower quadrant. Vital Signs: 21:12 BP 122 / 96; Pulse 88; Resp 18; Temp 98.3(O); Pulse Ox 96% on R/A; Weight 95.71 kg (R); lp1 Height 5 ft. 3 in. (160.02 cm); Pain 10/10; 22:31 BP 138 / 79; Pulse 88; Resp 18; Pulse Ox 99% on R/A; lp1 23:10 BP 128 / 76; Pulse 87; Resp 18; Pulse Ox 99% on R/A; lp1 21:12 Body Mass Index 37.38 (95.71 kg, 160.02 cm) lp1 MDM: 21:04 Patient medically screened. kb 21:09 Data reviewed: vital signs, nurses notes. Data interpreted: Pulse oximetry: on room air kb is 100 %. Interpretation: normal. 23:04 Counseling: I had a detailed discussion with the patient and/or guardian regarding: the kb historical points, exam findings, and any diagnostic results supporting the discharge/admit diagnosis, lab results, radiology results, the need for outpatient follow up, a family practitioner, to return to the emergency department if symptoms worsen or persist or if there are any questions or concerns that arise at home. 04/02 21:09 Order name: Urine Microscopic Only; Complete Time: 23:15 kb 04/02 21: Order name: Comprehensive Metabolic Panel; Complete Time: 21:54 EDMS 04/02 21:23 Order name: Lipase; Complete Time: 21:54 EDNC 04/02 21:09 Order name: CT Abd/Pelvis - IV Contrast Only; Complete Time: 21:58 kb 04/02 21:23 Order name: CBC with Automated Diff; Complete Time: 21:35 EDMS 04/02 21:25 Order name: Urine Dipstick-Ancillary; Complete Time: 21:27 EDNC 04/02 21:09 Order name: IV Saline Lock; Complete Time: 21:22 kb 04/02 21:09 Order name: Labs collected and sent; Complete Time: 21:22 kb 04/02 21:09 Order name: Urine Dipstick-Ancillary (obtain specimen); Complete Time: 21:27 kb Administered Medications: 21:30 Drug: NS 0.9% 1000 ml Route: IV; Rate: 1 bolus; Site: right antecubital; lp1 23:21 Follow up: IV Status: Completed infusion; IV Intake: 1000ml lp1 21:30 Drug: Zofran (Ondansetron) 4 mg Route: IVP; Site: right antecubital; lp1 22:26 Follow up: Response: Nausea is decreased lp1 21:33 Drug: Ketorolac 15 mg Route: IVP; Site: right antecubital; lp1 22:26 Follow up: Response: Pain is unchanged, physician notified lp1 22:26 Drug: morphine 4 mg Route: IVP; Infused Over: 4 mins; Site: right antecubital; lp1 23:21 Follow up: Response: Pain is decreased lp1 23:21 Drug: [place] (HYDROcodone-acetaminophen) (7.5 mg-325 mg) 1 tabs Route: PO; lp1 23:22 Follow up: Response: Medication administered at discharge. lp1 Disposition Summary: 04/02/22 23:05 Discharge Ordered Location: Home kb Condition: Stable kb Diagnosis - Abdominal pain, Generalized kb Followup: kb - With: Emergency Department - When: As needed - Reason: Worsening of condition Followup: kb - With: Private Physician - When: 2 - 3 days - Reason: Recheck today's complaints, Continuance of care, Re-evaluation by your physician Discharge Instructions: - Discharge Summary Sheet kb - Abdominal Pain, Adult, [id number] kb Forms: - Medication Reconciliation Form kb - Thank You Letter kb - Antibiotic Education kb - Prescription Opioid Use kb Prescriptions: - Zofran 4 mg Oral Tablet - take 1 tablet by ORAL route every 6 hours As needed; 10 tablet; Refills: 0, kb Product Selection Permitted - Diclofenac Sodium 75 mg Oral tablet,delayed release (DR/EC) - take 1 tablet by ORAL route 2 times per day As needed; 30 tablet; Refills: 0, kb Product Selection Permitted Signatures: Dispatcher [employer] Farhana Rosario, Suzi Oates, RN RN lp1 Corrections: (The following items were deleted from the chart) 21: 21:09 Urine Test ordered. bal jb4 : 21:29 CBC+H.LAB.BRZ ordered. EDMS EDMS 21:29 COMPREHENSIVE METABOLIC PANEL+C.LAB.BRZ ordered. EDMS EDMS : 21:29 LIPASE+C.LAB.BRZ ordered. EDMS EDMS
[2022-04-02 23:09] LABS: Urine Mucus 1+ /HPF (None Seen)
[2022-04-02 23:10] LABS: Urine Bacteria <20 /HPF (<20); Urine RBC <5 /HPF (None Seen)
[2022-04-02] MEDS ORDERED: HYDROCODONE/APAP 7.5/325 MG TAB ONE (23:23)
[2022-04-03 00:33] VITALS: BP 122/96; TEMP 98.3; O2SAT 96
== END 2022-04-02 23:23 | disposition home or self-care (01) ==
LOC: ER 20:59
DX: R10.84 Generalized abdominal pain (principal); R11.2 Nausea with vomiting, unspecified; R19.7 Diarrhea, unspecified
CPT/HCPCS: 36415; 74177; 80053; 81003; 81015; 83690; 85025; 96361; 96374; 96375; 99283; J2405; J7030; Q9967

== ENCOUNTER 2022-07-20 12:40 | Emergency (ER) | payer SELFPAY ==
--- NOTE | 2022-07-20 14:00 | RAD REPORT ---
EXAM DESCRIPTION: CT - C Spine Wo Con - 07/20/2022 1:35 pm CLINICAL HISTORY: cervical radiculopathy, pain COMPARISON: No comparisons TECHNIQUE: CT Scan was obtained of the cervical spine without contrast. Reformats were provided in t he sagittal and coronal plane. FINDINGS: No acute fracture of the cervical spine. No traumatic malalignment. No prevertebral edema. No significant focal degenerative changes. No suspicious thyroid nodules or lymphadenopathy. The candido g apices are clear. No significant focal degenerative changes. IMPRESSION: No fracture or traumatic malalignment of the cervical spine.
--- NOTE | 2022-07-20 14:03 | RAD REPORT ---
EXAM DESCRIPTION: RAD - Shoulder Right 2 View - 07/20/2022 1:41 pm CLINICAL HISTORY: PAIN COMPARISON: No comparisons FINDINGS/IMPRESSION: No acute fracture. No malalignment. No significant focal degenerative changes.
[2022-07-20] MEDS ORDERED: CYCLOBENZAPRINE 10 MG TAB ONE (14:06)
[2022-07-20] MEDS ORDERED: KETOROLAC 30 MG/ML INJ ONE (14:06)
--- NOTE | 2022-07-20 14:40 | ER ---
Nurse's Notes [facility] Name: Luz Augustin Age: 37 yrs Sex: Female : 1985 Arrival Date: 07/20/2022 Time: 12:58 Bed 11 Private MD: Diagnosis: Sebaceous cyst;Pain in right shoulder Presentation: 07/20 13:06 Chief complaint: Patient states: pain in right shoulder, has small knot on upper right kr3 shoulder that has increased in size and painful to touch that started Sunday. Arm is also tingling that started this morning.The knot has been on the shoulder for at least 2 years. Coronavirus screen: Vaccine status: Patient reports being unvaccinated. Client denies travel out of the [place] in the last 14 days. Ebola Screen: Patient denies travel to an Ebola-affected area in the 21 days before illness onset. Initial Sepsis Screen: Does the patient meet any 2 criteria? No. Patient's initial sepsis screen is negative. Does the patient have a suspected source of infection? No. Patient's initial sepsis screen is negative. Risk Assessment: Do you want to hurt yourself or someone else? Patient reports no desire to harm self or others. Onset of symptoms was July 16, 2022. 13:06 Method Of Arrival: Ambulatory [facility] 13:06 Acuity: NOEMI 3 kr3 Triage Assessment: 13:11 General: Appears. kr3 13:11 General: Behavior is calm. Pain: Complains of pain in right shoulder. kr3 Historical: - Allergies: 13:11 No Known Allergies; kr3 - PMHx: 13:11 None; kr3 - PSHx: 13:11 Cholecystectomy; hysterectomy; kr3 - Immunization history:: Adult Immunizations not up to date. - Social history:: Smoking status: Reported history of juuling and/or vaping. Screenin:52 Abuse screen: Denies threats or abuse. Denies injuries from another. Nutritional tp1 screening: No deficits noted. Tuberculosis screening: No symptoms or risk factors identified. Fall Risk None identified. Assessment: 14:52 General: Appears in no apparent distress. comfortable. Neuro: Level of Consciousness is tp1 awake, alert, obeys commands, Oriented to person, place, time, situation. Cardiovascular: Patient's skin is warm and dry. Respiratory: Airway is patent Respiratory effort is even, unlabored. Derm: Skin is pink, warm \T\ dry. Musculoskeletal: Circulation, motion, and sensation intact. Vital Signs: 13:06 BP 108 / 91; Pulse 79; Resp 18; Temp 98.2; Weight 99.79 kg; Height 5 ft. 3 in. (160.02 kr3 cm); Pain 10/10; 13:06 Body Mass Index 38.97 (99.79 kg, 160.02 cm) kr3 ED Course: 12:58 Patient arrived in ED. mr 13:00 [facility]imee Jensen [facility]NP [facility] 7 13:00 Sherman Tucker MD is Attending Physician. 7 13:11 Triage completed. kr3 13:12 Arm band placed on right wrist. kr3 13:37 CT C Spine In Process Unspecified. EDMS 13:43 XRAY Shoulder RIGHT 2 view In Process Unspecified. EDMS 14:00 Patient has correct armband on for positive identification. Bed in low position. tp1 14:52 Chapis James RN is Primary Nurse. tp1 14:52 No provider procedures requiring assistance completed. Patient did not have IV access tp1 during this emergency room visit. Administered Medications: 14:11 Drug: Ketorolac 60 mg Route: IM; Site: right ventrogluteal; kb3 14:53 Follow up: Response: Pain is decreased tp1 14:11 Drug: Flexeril (cyclobenzaprine) 10 mg Route: PO; kb3 14:53 Follow up: Response: Pain is decreased tp1 Medication: 14:53 VIS not applicable for this client. tp1 Outcome: 14:39 Discharge ordered by . [facility] 14:53 Discharged to home ambulatory. tp1 14:53 Condition: good 14:53 Discharge instructions given to patient, Instructed on discharge instructions, follow up and referral plans. medication usage, Demonstrated understanding of instructions, follow-up care, medications, Prescriptions given X 2. 14:53 Patient left the ED. tp1 Signatures: Dispatcher [employer] Roger Keke mr Chapis James, RN RN tp1 Aimee Jensen FNP GRINDER AND HONER OPERATOR AUTOMATIC 7 Ashlyn Tello RN RN kr3 Jacquelin Waterman RN RN kb3 Corrections: (The following items were deleted from the chart) 13:12 13:11 Social history: Smoking status: Patient denies any tobacco usage or history of. kr3 kr3
--- NOTE | 2022-07-20 14:40 | EDPHYS ---
Physician Documentation [facility] Name: Luz Augustin Age: 37 yrs Sex: Female : 1985 Arrival Date: 07/20/2022 Time: 12:58 Bed 11 Private MD: ED Physician Sherman Tucker HPI: 07/20 13:12 This 37 yrs old Female presents to ER via Ambulatory with complaints of Shoulder Pain. jh7 13:12 The patient or guardian complains of pain, that is acute. right shoulder. Context: no jh7 known injury. Onset: The symptoms/episode began/occurred 5 day(s) ago. Patient complains of right shoulder pain starting Sunday. Reports that the pain is reproducible by movement of the neck and abduction of the shoulder. Denies any known injury. reports a small knot over her shoulder for the past year.. Historical: - Allergies: 13:11 No Known Allergies; kr3 - PMHx: 13:11 None; kr3 - PSHx: 13:11 Cholecystectomy; hysterectomy; kr3 - Immunization history:: Adult Immunizations not up to date. - Social history:: Smoking status: Reported history of juuling and/or vaping. ROS: 13:12 Constitutional: Negative for fever, chills, and weight loss, Eyes: Negative for injury, jh7 pain, redness, and discharge, Cardiovascular: Negative for chest pain, palpitations, and edema, Respiratory: Negative for shortness of breath, cough, wheezing, and pleuritic chest pain, Abdomen/GI: Negative for abdominal pain, nausea, vomiting, diarrhea, and constipation, Back: Negative for injury and pain, Skin: Negative for injury, rash, and discoloration, Neuro: Negative for headache, weakness, numbness, tingling, and seizure. 13:12 Neck: Positive for pain with movement, Negative for injury or acute deformity, mass, swelling, tenderness. 13:12 MS/extremity: Positive for decreased range of motion, pain, Negative for injury or acute deformity, ecchymosis. 13:12 All other systems are negative. Exam: 13:12 Constitutional: This is a well developed, well nourished patient who is awake, alert, jh7 and in no acute distress. Head/Face: Normocephalic, atraumatic. Eyes: Pupils equal round and reactive to light, extra-ocular motions intact. Lids and lashes normal. Conjunctiva and sclera are non-icteric and not injected. Cornea within normal limits. Periorbital areas with no swelling, redness, or edema. Cardiovascular: Regular rate and rhythm with a normal S1 and S2. No gallops, murmurs, or rubs. Normal PMI, no JVD. No pulse deficits. Respiratory: Lungs have equal breath sounds bilaterally, clear to auscultation and percussion. No rales, rhonchi or wheezes noted. No increased work of breathing, no retractions or nasal flaring. Abdomen/GI: Soft, non-tender, with normal bowel sounds. No distension or tympany. No guarding or rebound. No evidence of tenderness throughout. Neuro: Awake and alert, GCS 15, oriented to person, place, time, and situation. Motor strength 5/5 in all extremities. Sensory grossly intact. Normal gait. 13:12 Musculoskeletal/extremity: R shoulder: NVI, pain over the deltoid with abduction greater than 90 degrees. Pain also elicited over this area with movement of the neck. Sensation intact.. 13:12 Skin: 2 cm hard lesion with ill-defined border with mild surround erythema. Pt states jh7 she has had this for 1 year, but that it started hurting 5 days ago.. Vital Signs: 13:06 BP 108 / 91; Pulse 79; Resp 18; Temp 98.2; Weight 99.79 kg; Height 5 ft. 3 in. (160.02 kr3 cm); Pain 10/10; 13:06 Body Mass Index 38.97 (99.79 kg, 160.02 cm) kr3 MDM: 13:00 Patient medically screened. [facility] 13:12 Differential diagnosis: Shoulder strain, cervical radiculopathy, cyst, abscess. Data [facility] reviewed: vital signs, nurses notes, radiologic studies, plain films. Data interpreted: Pulse oximetry: is 100 %. Interpretation: normal. Counseling: I had a detailed discussion with the patient and/or guardian regarding: the historical points, exam findings, and any diagnostic results supporting the discharge/admit diagnosis, to return to the emergency department if symptoms worsen or persist or if there are any questions or concerns that arise at home. ED course: Informed the patient that her area of pain is likely due to a cyst. However antibiotics would be prescribed due to pain starting only 5 days ago and the erythema being new. Also advised warm compresses. If symptoms worsen, or fever develops, the patient should return to the ER for further eval. Otherwise f/u with derm for cyst.. 07/20 13:22 Order name: XRAY Shoulder RIGHT 2 view; Complete Time: 14:29 7 07/20 13:22 Order name: CT C Spine; Complete Time: 14:29 jh7 Administered Medications: 14:11 Drug: Ketorolac 60 mg Route: IM; Site: right ventrogluteal; kb3 14:53 Follow up: Response: Pain is decreased tp1 14:11 Drug: Flexeril (cyclobenzaprine) 10 mg Route: PO; kb3 14:53 Follow up: Response: Pain is decreased tp1 Disposition Summary: 07/20/22 14:39 Discharge Ordered Location: Home [facility] Problem: new [facility] Symptoms: are unchanged [facility] Condition: Stable [facility] Diagnosis - Sebaceous cyst [facility] - Pain in right shoulder [facility] Followup: [facility] - With: Private Physician - When: 2 - 3 days - Reason: Recheck today's complaints Discharge Instructions: - Discharge Summary Sheet [facility] - Epidermal Cyst 7 - Shoulder Pain [facility] - Heat Therapy [facility] Forms: - Medication Reconciliation Form [facility] - Thank You Letter [facility] - Antibiotic Education [facility] Prescriptions: - Naprosyn 500 mg Oral Tablet - take 1 tablet by ORAL route 2 times per day take with food; 30 tablet; Refills: [facility] 0, Product Selection Permitted - Bactrim DS 800-160 mg Oral Tablet - take 1 tablet by ORAL route every 12 hours for 10 days; 20 tablet; Refills: 0, 7 Product Selection Permitted Addendum: 07/22/2022 08:32 Co-signature as Attending Physician, Sherman Tucker MD I agree with the assessment and c champagne plan of care. Signatures: Dispatcher [employer] Sherman Mirza MD MD cha Hadash, Jennifer, SENIOR PRODUCTION MANAGER SENIOR PRODUCTION MANAGER 7 Ashlyn Tello RN RN kr3 Jacquelin Waterman RN RN bal3 Chapis James RN tp1 Corrections: (The following items were deleted from the chart) 07/20 13:12 13:11 Social history: Smoking status: Patient denies any tobacco usage or history of. kr3 kr3 14:36 13:12 Constitutional: This is a well developed, well nourished patient who is awake, jh7 alert, and in no acute distress. Head/Face: Normocephalic, atraumatic. Eyes: Pupils equal round and reactive to light, extra-ocular motions intact. Lids and lashes normal. Conjunctiva and sclera are non-icteric and not injected. Cornea within normal limits. Periorbital areas with no swelling, redness, or edema. Cardiovascular: Regular rate and rhythm with a normal S1 and S2. No gallops, murmurs, or rubs. Normal PMI, no JVD. No pulse deficits. Respiratory: Lungs have equal breath sounds bilaterally, clear to auscultation and percussion. No rales, rhonchi or wheezes noted. No increased work of breathing, no retractions or nasal flaring. Abdomen/GI: Soft, non-tender, with normal bowel sounds. No distension or tympany. No guarding or rebound. No evidence of tenderness throughout. Skin: Warm, dry with normal turgor. Normal color with no rashes, no lesions, and no evidence of cellulitis. Neuro: Awake and alert, GCS 15, oriented to person, place, time, and situation. Motor strength 5/5 in all extremities. Sensory grossly intact. Normal gait. jh7
[2022-07-20 14:58] VITALS: BP 108/91; TEMP 98.2
== END 2022-07-20 14:53 | disposition home or self-care (01) ==
LOC: ER 12:40
DX: L72.3 Sebaceous cyst (principal)
CPT/HCPCS: 72125; 96372; 99283

== ENCOUNTER 2022-08-08 03:52 | Emergency (ER) | payer SELFPAY ==
[2022-08-08] MEDS ORDERED: CYCLOBENZAPRINE 10 MG TAB ONE (04:25)
[2022-08-08] MEDS ORDERED: GABAPENTIN 300 MG CAP ONE (04:25)
[2022-08-08] MEDS ORDERED: KETOROLAC 30 MG/ML INJ ONE (04:25)
--- NOTE | 2022-08-08 05:57 | ER ---
Nurse's Notes [facility] Name: Luz Augustin Age: 37 yrs Sex: Female : 1985 Arrival Date: 08/08/2022 Time: 03:57 Bed 19 Private MD: Diagnosis: Radiculopathy, lumbar region Presentation: 08/08 04:01 Chief complaint: Patient states: Around 900 last night i was in the shower and i guess kd3 i twisted wrong. I thought i got a cramp but it still hurts and it wont go away. I tried to take Tylenol but it didn't really help at all. It hurts from my left knee up to my back. Coronavirus screen: Vaccine status: Patient reports being unvaccinated. Ebola Screen: No symptoms or risks identified at this time. Initial Sepsis Screen: Does the patient meet any 2 criteria? No. Patient's initial sepsis screen is negative. Does the patient have a suspected source of infection? No. Patient's initial sepsis screen is negative. Risk Assessment: Do you want to hurt yourself or someone else? Patient reports no desire to harm self or others. Onset of symptoms was August 08, 2022. 04:01 Method Of Arrival: Ambulatory kd3 04:01 Acuity: NOEMI 3 kd3 Triage Assessment: 04:05 General: Appears uncomfortable, Behavior is calm, cooperative. Pain: Complains of pain kd3 in left hip, lateral aspect of left thigh and lateral aspect of left knee Pain radiates to left lower back and left gluteus nadia. Neuro: Level of Consciousness is awake, alert, obeys commands, Oriented to person, place, time, situation. Respiratory: Airway is patent Trachea midline Respiratory effort is even, unlabored, Respiratory pattern is regular, symmetrical. Musculoskeletal: Reports pain in left leg. 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 - Social history:: Smoking status: Reported history of juuling and/or vaping. - Family history:: not pertinent. Screenin:38 Abuse screen: Denies threats or abuse. Denies injuries from another. Nutritional aa9 screening: No deficits noted. Tuberculosis screening: No symptoms or risk factors identified. Fall Risk None identified. Assessment: 04:37 Reassessment: Patient is alert, oriented x 3, equal unlabored respirations, skin aa9 warm/dry/pink. General: Appears uncomfortable, Behavior is calm, cooperative, appropriate for age. Pain: Complains of pain in lateral aspect of left thigh Pain radiates to left lower back, left gluteus nadia and left gluteal fold Noted to be grimacing, moaning. Neuro: Level of Consciousness is awake, alert, obeys commands, Oriented to person, place, time, situation. Cardiovascular: Patient's skin is warm and dry. Respiratory: Airway is patent Respiratory effort is even, unlabored. GI: No signs and/or symptoms were reported involving the gastrointestinal system. : No signs and/or symptoms were reported regarding the genitourinary system. Derm: No signs and/or symptoms reported regarding the dermatologic system. Vital Signs: 04:01 BP 123 / 68; Pulse 98; Resp 19; Temp 98.3(TE); Pulse Ox 100% ; Weight 92.99 kg; Height kd3 5 ft. 3 in. (160.02 cm); Pain 10/10; 04:01 Body Mass Index 36.31 (92.99 kg, 160.02 cm) kd3 ED Course: 03:57 Patient arrived in ED. bp1 04:04 Roberto Boggs MD is Attending Physician. rt 04:05 Triage completed. kd3 04:05 Arm band placed on right wrist. kd3 04:21 Jeri Connell, RN is Primary Nurse. aa9 04:52 Hip Left 2 View XRAY In Process Unspecified. EDMS 04:52 Knee Left 3 View XRAY In Process Unspecified. EDMS 06:15 Patient has correct armband on for positive identification. Adult w/ patient. aa9 06:15 No provider procedures requiring assistance completed. Patient did not have IV access aa9 during this emergency room visit. Administered Medications: 04:28 Drug: Ketorolac 30 mg Route: IM; Site: left vastus lateralis; aa9 04:47 Follow up: Response: No adverse reaction aa9 04:28 Drug: Flexeril (cyclobenzaprine) 10 mg Route: PO; aa9 04:47 Follow up: Response: No adverse reaction aa9 04:28 Drug: Gabapentin 300 mg Route: PO; aa9 04:47 Follow up: Response: No adverse reaction aa9 Medication: 04:39 VIS not applicable for this client. aa9 Outcome: 05:57 Discharge ordered by . rt 06:15 Discharged to home ambulatory. aa9 06:15 Condition: stable 06:15 Discharge instructions given to patient, Instructed on discharge instructions, follow up and referral plans. medication usage, Demonstrated understanding of instructions, follow-up care, medications, Prescriptions given X 1. 06:16 Patient left the ED. aa9 Signatures: Dispatcher [employer] EDMS Viviane Martinez Kyli, RN RN kd3 Jeri Connell RN RN aa9 Roberto Boggs MD MD rt
--- NOTE | 2022-08-08 05:57 | EDPHYS ---
Physician Documentation [facility] Name: Luz Augustin Age: 37 yrs Sex: Female : 1985 Arrival Date: 08/08/2022 Time: 03:57 Bed 19 Private MD: ED Physician Roberto Boggs HPI: 08/08 05:36 This 37 yrs old Female presents to ER via Ambulatory with complaints of Leg Pain, Leg rt Injury. 05:36 The patient presents with an injury. The complaints affect the lateral aspect of left rt thigh. Context: The problem was sustained shower. Onset: The symptoms/episode began/occurred acutely. Modifying factors: The symptoms are alleviated by nothing. the symptoms are aggravated by movement. Associated signs and symptoms: The patient has no apparent associated signs or symptoms. Presents to the ED with a left leg pain after twisting around in the shower at about 9 PM yesterday. Patient was able to fall asleep, she woke up, she reported pain to the left lateral leg radiating to the lower back region. Denies other acute complaints at this time. Pain is aching nature, not otherwise radiating, no other aggravating alleviating factors.. 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 - Social history:: Smoking status: Reported history of juuling and/or vaping. - Family history:: not pertinent. ROS: 05:36 Constitutional: Negative for fever, chills, and weight loss, Eyes: Negative for injury, rt pain, redness, and discharge, ENT: Negative for injury, pain, and discharge, Cardiovascular: Negative for chest pain, palpitations, and edema, Respiratory: Negative for shortness of breath, cough, wheezing, and pleuritic chest pain, Abdomen/GI: Negative for abdominal pain, nausea, vomiting, diarrhea, and constipation, Skin: Negative for injury, rash, and discoloration, Neuro: Negative for headache, weakness, numbness, tingling, and seizure, Psych: Negative for depression, anxiety, suicide ideation, homicidal ideation, and hallucinations. 05:36 Back: Positive for radiated pain, Negative for decreased range of motion. 05:36 MS/extremity: Positive for pain, Negative for erythema. Exam: 05:36 Constitutional: This is a well developed, well nourished patient who is awake, alert, rt and in no acute distress. Head/Face: Normocephalic, atraumatic. Eyes: Pupils equal round and reactive to light, extra-ocular motions intact. Lids and lashes normal. Conjunctiva and sclera are non-icteric and not injected. Cornea within normal limits. Periorbital areas with no swelling, redness, or edema. ENT: Nares patent. No nasal discharge, no septal abnormalities noted. Tympanic membranes are normal and external auditory canals are clear. Oropharynx with no redness, swelling, or masses, exudates, or evidence of obstruction, uvula midline. Mucous membranes moist. Chest/axilla: Normal chest wall appearance and motion. Nontender with no deformity. No lesions are appreciated. Cardiovascular: Regular rate and rhythm with a normal S1 and S2. No gallops, murmurs, or rubs. Normal PMI, no JVD. No pulse deficits. Respiratory: Lungs have equal breath sounds bilaterally, clear to auscultation and percussion. No rales, rhonchi or wheezes noted. No increased work of breathing, no retractions or nasal flaring. Abdomen/GI: Soft, non-tender, with normal bowel sounds. No distension or tympany. No guarding or rebound. No evidence of tenderness throughout. Skin: Warm, dry with normal turgor. Normal color with no rashes, no lesions, and no evidence of cellulitis. Neuro: Awake and alert, GCS 15, oriented to person, place, time, and situation. Cranial nerves II-XII grossly intact. Motor strength 5/5 in all extremities. Sensory grossly intact. Cerebellar exam normal. Normal gait. Psych: Awake, alert, with orientation to person, place and time. Behavior, mood, and affect are within normal limits. 05:36 Back: Tenderness to the left paraspinal region, no midline tenderness, no step-offs. 05:36 Musculoskeletal/extremity: Mild tenderness over left lateral thigh at about an L5 distribution, no overlying skin changes, full range of motion, pulses, motor, sensation intact. Vital Signs: 04:01 BP 123 / 68; Pulse 98; Resp 19; Temp 98.3(TE); Pulse Ox 100% ; Weight 92.99 kg; Height kd3 5 ft. 3 in. (160.02 cm); Pain 06/12; 04:01 Body Mass Index 36.31 (92.99 kg, 160.02 cm) kd3 MDM: 04:09 Patient medically screened. rt 06:01 Differential diagnosis: Radicular pain, fracture, muscle spasm, contusion. Data rt reviewed: vital signs, radiologic studies. ED course: Patient presents to the ED with a left leg pain. This pain does seem to be an L5 distribution, believe that she may have had a slipped disc. There are no focal neurologic deficits. No saddle anesthesia, bowel, bladder incontinence or retention. Do not suspect cauda equina syndrome, spinal epidural abscess. X-rays are unremarkable. Patient is stable for outpatient care, return precautions were discussed.. 08/08 04:18 Order name: Hip Left 2 View XRAY rt 08/08 04:18 Order name: Knee Left 3 View XRAY rt Administered Medications: 04:28 Drug: Ketorolac 30 mg Route: IM; Site: left vastus lateralis; aa9 04:47 Follow up: Response: No adverse reaction aa9 04:28 Drug: Flexeril (cyclobenzaprine) 10 mg Route: PO; aa9 04:47 Follow up: Response: No adverse reaction aa9 04:28 Drug: Gabapentin 300 mg Route: PO; aa9 04:47 Follow up: Response: No adverse reaction aa9 Disposition Summary: 08/08/22 05:57 Discharge Ordered Location: Home rt Problem: new rt Symptoms: are unchanged rt Condition: Stable rt Diagnosis - Radiculopathy, lumbar region rt Followup: rt - With: Private Physician - When: 2 - 3 days - Reason: Discharge Instructions: - Discharge Summary Sheet rt - Radicular Pain rt Forms: - Medication Reconciliation Form rt - Thank You Letter rt - Antibiotic Education rt - Prescription Opioid Use rt Prescriptions: - Cyclobenzaprine 10 mg Oral Tablet - take 1 tablet by ORAL route every 8 hours As needed; 15 tablet; Refills: 0, rt Product Selection Permitted Signatures: Dispatcher [employer] Michelle Carson RN RN kd3 Jeri Connell RN RN aa9 Roberto Boggs MD MD rt
[2022-08-08 09:58] VITALS: BP 123/68; TEMP 98.3; O2SAT 100
--- NOTE | 2022-08-08 20:00 | RAD REPORT ---
EXAM DESCRIPTION: Knee Left 3 View CLINICAL HISTORY: 37 years Female PAIN COMPARISON: None FINDINGS: 3 views of the left knee. Normal mineralization. No acute fracture or dislocation. Joint spaces are maintained. IMPRESSION: No acute bony finding. Electronically signed by: Bertha Acharya MD 08/08/2022 5:08 AM DRUM LOADER AND UNLOADER Due to temporary technical issues with the PACS/Fluency reporting system, reports are being signed by the in house radiologists without review as a courtesy to insure prompt reporting. The interpreting radiologist is fully responsible for the content of the report.
--- NOTE | 2022-08-08 20:02 | RAD REPORT ---
EXAM DESCRIPTION: XR HIP 2 OR MORE VIEWS CLINICAL HISTORY: PAIN COMPARISON: None. TECHNIQUE: XR HIP 2 OR MORE VIEWS 08/08/2022 4:18 AM BALANCER SCALE FINDINGS: There is no fracture. Joint spaces are preserved. Soft tissues are unremarkable. IMPRESSION: No acute osseous findings. Electronically signed by: Nate aHyward MD 08/08/2022 5:54 AM BALANCER SCALE Due to temporary technical issues with the PACS/Fluency reporting system, reports are being signed by the in house radiologists without review as a courtesy to insure prompt reporting. The interpreting radiologist is fully responsible for the content of the report.
== END 2022-08-08 06:16 | disposition home or self-care (01) ==
LOC: ER 03:52
DX: M54.16 Radiculopathy, lumbar region (principal)
CPT/HCPCS: 96372; 99283